=== PATIENT | male | born 1960 | race Caucasian/White ===

== ENCOUNTER → 2021-06-07 02:36 | Outpatient (CLI) | payer OTHER, SELFPAY ==
[2021-06-07 20:46] LABS: SARS-CoV-2 RNA PCR Negative
== END ==
PROVIDERS: PCP Hospitalist; Visit Provider Internal Medicine Gastroenterology
DX: Z01.812 Encounter for preprocedural laboratory examination (principal); Z20.822 Contact with and (suspected) exposure to COVID-19
CPT/HCPCS: C9803; U0003; U0005

== ENCOUNTER 2021-06-10 01:49 | Day surgery (SDC) | payer OTHER, SELFPAY ==
[2021-05-26 14:24] VITALS: BMI 22.4
[2021-06-10 06:22] VITALS: BP 134/79; PULSE 79; RESP 18; TEMP 36.1; O2SAT 99; BMI 21.7
[2021-06-10] MEDS: LACTATED RINGERS 1,000 ML 150 ML IV CONT (06:34)
--- NOTE | 2021-06-10 07:13 | P.PNAN_ITS ---
Anes - Initial Pre Proc Eval Procedure: Operation Date: 06/10/21 07:30 Proposed Procedures p Screening Colonoscopy - Can Diaz MD Date/Time: 06/10/21 07:13 Surgeon: Can Diaz MD Pre Op Diagnosis: neoplasm screening Patient Data Age: 61 Gender: M Height: 1.85 m Weight: 74.9 kg Last Vital Signs Temp 97 F L 06/10/21 06:22 Pulse 79 06/10/21 06:22 Resp 18 06/10/21 06:22 BP 134/79 06/10/21 06:22 Pulse Ox 99 06/10/21 06:22 Allergies Allergy/AdvReac Type Severity Reaction Status Date / Time Penicillins Allergy Unknown Unknown Verified 06/10/21 06:20 Home Medications Medication Instructions Recorded Confirmed Type lisinopril 10 mg tablet 10 mg PO DAILY 01/11/21 05/26/21 History carbidopa 25 mg-levodopa 100 mg 1 tablet PO TID #90 tablet 02/14/21 05/26/21 Rx tablet Patient hx anesthesia problems: none Family hx anesthesia problems: none [facility] Past Medical History Medical History (Updated 06/10/21 @ 07:13 by Marcelo Martinez MD) Hypertension Parkinson disease Social History Social History Social History: never smoker Smoking status: Never smoker Alcohol intake: current Drinks per week: 5 Living arrangements: with family Spiritual care concerns: No Anes - Eval Final PreProcedure Day of Procedure 06/10/21 07:13 Patient weight: normal Heart: regular rate and rhythm Lungs: clear to auscultation Airway: Mallampati scale class II Neurological: alert and oriented Last oral intake: >/= 8 hours ASA classification: III Emergent: no Anesthetic plan: proceed Anesthesia type and monitoring: general GIVS and standard monitoring Informed Consent: The patient's anesthetic plan and its attendant risks and benefits were discussed with the patient/family/POA. Questions were solicited and answers provided to the satisfaction of the patient/family/POA.
--- NOTE | 2021-06-10 07:17 | P.CONGI_ITS ---
Assessment and Plan Assessment and plan (1) Family history of colonic polyps: Code(s): Z83.71 - Family history of colonic polyps Status: Acute Assessment and Plan: Patient has a family history colon polyps with 2 brothers having had colon polyps. Plan is for surveillance colonoscopy at this time. Further recommendations will be given after endoscopy. GI Consult Note Consult date/time: 06/10/21 07:17 HPI: Teddy Ballard is a 61 year old male Presents for screening colonosc opy. Patient reports that his weight appetite bowel movements are normal. He denies abdominal pain. He has had no bleeding. Family history is significant that 2 brothers have had colon polyps. Patient reports his last colonoscopy ten or 11 years ago was unremarkable. Patient's father with lymphoma. Patient reports a new diagnosis of Parkinson's disease. For which she takes carbidopa. Review of Systems Review of Systems: All systems reviewed & are unremarkable except as noted in HPI and below PMFSH Past Medical History Medical History (Updated 06/10/21 @ 07:18 by Can Diaz MD) Hypertension Parkinson disease Social History Social History Social History: never smoker Smoking status: Never smoker Alcohol intake: current Drinks per week: 5 Living arrangements: with family Spiritual care concerns: No Meds Home Medications and Allergies Home Medications Medication Instructions Recorded Confirmed Type lisinopril 10 mg tablet 10 mg PO DAILY 01/11/21 05/26/21 History carbidopa 25 mg-levodopa 100 mg 1 tablet PO TID #90 tablet 02/14/21 05/26/21 Rx tablet Allergies Allergy/AdvReac Type Severity Reaction Status Date / Time Penicillins Allergy Unknown Unknown Verified 06/10/21 06:20 Vital Signs Vital Signs - 24 hr 06/10/21 06:22 Temperature 97 F L Pulse Rate 79 Respiratory Rate 18 Blood Pressure 134/79 Pulse Oximetry 99 Exam Narrative: Physical exam reveals patient be alert. Vital signs stable. HEENT exam is unremarkable. Patient is anicteric. Lungs are clear to auscultation and percussion. Heart is without murmur or extra sounds. Abdominal exam bowel sounds are present soft nontender with no hepatosplenomegaly. Digital external rectal exam is normal.
[2021-06-10 07:53] VITALS: BP 104/67; PULSE 69; RESP 18; O2SAT 99
[2021-06-10 08:03] VITALS: BP 114/68; PULSE 69; RESP 18; O2SAT 99
[2021-06-10 08:13] VITALS: BP 114/68; PULSE 72; RESP 18; O2SAT 99
== END 2021-06-10 08:23 | disposition home or self-care (01) ==
PROVIDERS: PCP Physician Assistant; Visit Provider Internal Medicine Gastroenterology
PROC: 0DJD8ZZ Inspection of Lower Intestinal Tract, Via Natural or Artificial Opening Endoscopic (ICD-10-PCS; CPT 45378; principal; 2021-06-10 07:30)
DX: Z12.11 Encounter for screening for malignant neoplasm of colon (principal); D12.8 Benign neoplasm of rectum; K64.8 Other hemorrhoids; Z83.71 Family history of colonic polyps; I10 Essential (primary) hypertension; G20 Parkinson's disease
CPT/HCPCS: 45385; 88305; C9803; J2704; J7120; U0003; U0005